=== PATIENT | female | born 1955 | race Caucasian/White ===

== ENCOUNTER 2020-04-09 16:41 | Inpatient (IN) ==
[2020-04-09] MEDS ORDERED: Aspirin 81 MG TAB.CHEW PO ONE (18:15)
[2020-04-09 18:35] LABS: Basophils # 0.1 K/mcL (0.0-0.2); Basophils % 0.6 %; Eosinophils # 0.3 K/mcL (0.0-0.6); Eosinophils % 4.1 %; Hematocrit 44.9 % (35.3-44.9); Immature Granulocytes % 0.2 % (0-4); Lymphocytes % 23.8 %; Mean Corpuscular HGB Conc 31.2 g/dL (31.6-35.5); Mean Corpuscular Hemoglobin 29.2 pg (28.0-33.3); Mean Corpuscular Volume 93.7 fL (83.0-100.0); Mean Platelet Volume 9.4 fL (9.4-12.4); Monocytes # 0.6 K/mcL (0.0-1.3); Monocytes % 7.4 %; Neutrophils # 5.3 K/mcL (1.6-8.9); Platelet Count 310 K/mcL (140-400); Red Blood Count 4.79 M/mcL (3.82-4.97); Segmented Neutrophils % 63.9 %; White Blood Count 8.3 K/mcL (4.3-11.1)
[2020-04-09 18:46] LABS: INR 1.1; Prothrombin Time 12.3 Seconds (9.4-12.1)
[2020-04-09 18:48] LABS: Activated Partial Thrombo Time 27.2 Seconds (26.0-36.0)
[2020-04-09 18:56] LABS: Alanine Aminotransferase 10 Units/L (7-52); Albumin 4.3 g/dL (3.5-5.7); Albumin/Globulin Ratio 1.5 (1.1-2.2); Alkaline Phosphatase 127 Units/L (34-104); Aspartate Amino Transferase 14 Units/L (13-39); BUN/Creatinine Ratio 25 (6-26); Bilirubin,Direct 0.1 mg/dL (0.0-0.2); Bilirubin,Indirect 0.3 mg/dL (0.0-1.0); Bilirubin,Total 0.4 mg/dL (0.3-1.0); Blood Urea Nitrogen 26 mg/dL (8-23); Calcium 9.8 mg/dL (8.6-10.3); Carbon Dioxide 30 mEq/L (23-29); Chloride 102 mEq/L (98-107); Globulin 2.8 g/dL (2.4-3.5); Glucose 126 mg/dL (70-105); Lipase 50 Units/L (11-82); Osmolality,Calculated 294 (280-300); Potassium 3.6 mEq/L (3.5-5.1); Sodium 139 mEq/L (136-145); Total Protein 7.1 g/dL (6.4-8.9); Troponin I 0.03 ng/mL (< 0.04); eGFR For African Americans > 60 (> 60); eGFR For Non-African Americans 54 (> 60)
[2020-04-09] MEDS ORDERED: predniSONE 20 MG TABLET PO ONE (19:58)
[2020-04-09] MEDS ORDERED: Naloxone 0.4 MG/ML INJ IVP PRN (21:37)
[2020-04-09] MEDS ORDERED: Ondansetron ODT 4 MG TAB.RAPDIS SL PRN (21:37)
[2020-04-09] MEDS ORDERED: Acetaminophen 325 MG TABLET PO PRN (21:37)
[2020-04-09] MEDS ORDERED: Perflutren Lipid Microsphere 1.3 ML in 0.9 % Sodium Chloride 8.7 ML IVP PRN (21:39)
[2020-04-10 00:52] LABS: Hematocrit 41.2 % (35.3-44.9); Hemoglobin 12.8 g/dL (11.5-15.4); Mean Corpuscular HGB Conc 31.1 g/dL (31.6-35.5); Mean Corpuscular Hemoglobin 29.5 pg (28.0-33.3); Mean Corpuscular Volume 94.9 fL (83.0-100.0); Mean Platelet Volume 9.5 fL (9.4-12.4); Platelet Count 240 K/mcL (140-400); Red Blood Count 4.34 M/mcL (3.82-4.97); Red Cell Distribution Width 14.7 % (11.5-14.5); White Blood Count 8.6 K/mcL (4.3-11.1)
[2020-04-10 00:56] LABS: Prothrombin Time 11.6 Seconds (9.4-12.1)
[2020-04-10 01:12] LABS: BUN/Creatinine Ratio 30 (6-26); Blood Urea Nitrogen 26 mg/dL (8-23); Calcium 9.4 mg/dL (8.6-10.3); Carbon Dioxide 23 mEq/L (23-29); Chloride 105 mEq/L (98-107); Chol/HDL Ratio 6.8 (0-4.9); Cholesterol 217 mg/dL (< 200); Glucose 133 mg/dL (70-105); HDL Cholesterol 32 mg/dL (40-59); LDL Cholesterol,Calculated 146 mg/dL (< 100); Magnesium 2.1 mg/dL (1.6-2.6); Osmolality,Calculated 293 (280-300); Phosphorous 3.5 mg/dL (2.7-4.5); Sodium 138 mEq/L (136-145); Triglycerides 197 mg/dL (< 150); eGFR For African Americans > 60 (> 60); eGFR For Non-African Americans > 60 (> 60)
[2020-04-10 01:25] LABS: Thyroid Stimulating Hormone 1.012 mcIU/mL (0.340-5.600)
[2020-04-10] MEDS ORDERED: Regadenoson 0.4 MG/5 ML SYRINGE IVP ONE (06:22)
[2020-04-10] MEDS ORDERED: Metoprolol XL (24 HR) Succ 25 MG TAB.ER.24H PO SCH (09:00)
[2020-04-10] MEDS ORDERED: Dextrose Gel 15 GM/37.5 ML TUBE PO PRN ×2 (09:12)
[2020-04-10] MEDS ORDERED: *HR* Dextrose 50 % in Water (Vial) 50 ML VIAL IVP PRN (09:12)
[2020-04-10] MEDS ORDERED: D5% in Water 1,000 ML IVC PRN (09:12)
[2020-04-10] MEDS: hydrALAZINE 25 MG TABLET PO SCH ×2 (09:32→20:05)
[2020-04-10] MEDS: Furosemide 20 MG TABLET PO SCH (09:32)
[2020-04-10] MEDS: Anastrozole 1 MG TABLET PO SCH (09:32)
[2020-04-10] MEDS: Gabapentin 100 MG CAPSULE PO SCH ×3 (09:32→20:06)
[2020-04-10] MEDS: Aspirin 325 MG TABLET PO SCH (09:40)
[2020-04-10] MEDS: Insulin LISPRO 300 UNITS/3 ML VIAL SQ SCH ×3 (09:56→17:28)
[2020-04-10] MEDS: predniSONE 20 MG TABLET PO SCH (14:06)
[2020-04-10] MEDS ORDERED: Nitroglycerin 1,000 MCG/10 ML VIAL IV ONE (14:16)
[2020-04-10] MEDS ORDERED: Heparin 1,000 UNITS/500 mL 500 ML ONE (14:16)
[2020-04-10] MEDS ORDERED: *HR* Heparin 10,000 UNIT/10 ML VIAL ONE (14:16)
[2020-04-10] MEDS ORDERED: ISOVUE-370 200 ML INFUS..BTL ONE ×2 (14:16→15:43)
[2020-04-10] MEDS ORDERED: 0.9 % Sodium Chloride 2,000 ML ONE (14:16)
[2020-04-10] MEDS ORDERED: *HR* Midazolam HCl 2 MG/2 ML VIAL ONE (15:06)
[2020-04-10] MEDS ORDERED: *HR* FentaNYL (PF) 100 MCG/2 ML VIAL ONE (15:06)
[2020-04-10] MEDS: *HR* Heparin 5,000 UNIT/ML VIAL SQ SCH (17:05)
[2020-04-11] MEDS: Insulin LISPRO 300 UNITS/3 ML VIAL SQ SCH ×6 (00:32→20:37)
[2020-04-11] MEDS: *HR* Heparin 5,000 UNIT/ML VIAL SQ SCH ×2 (05:32→17:02)
[2020-04-11] MEDS: Aspirin 325 MG TABLET PO SCH (07:40)
[2020-04-11] MEDS: predniSONE 20 MG TABLET PO SCH (08:32)
[2020-04-11] MEDS: Metoprolol XL (24 HR) Succ 50 MG TAB.ER.24H PO SCH (08:32)
[2020-04-11] MEDS: Gabapentin 100 MG CAPSULE PO SCH ×3 (08:32→20:37)
[2020-04-11] MEDS: Anastrozole 1 MG TABLET PO SCH (08:32)
[2020-04-11] MEDS: hydrALAZINE 25 MG TABLET PO SCH (08:33)
[2020-04-11] MEDS: Furosemide 20 MG TABLET PO SCH (08:33)
[2020-04-11 10:27] LABS: BUN/Creatinine Ratio 26 (6-26); Blood Urea Nitrogen 28 mg/dL (8-23); Calcium 9.4 mg/dL (8.6-10.3); Carbon Dioxide 24 mEq/L (23-29); Chloride 103 mEq/L (98-107); Glucose 159 mg/dL (70-105); Osmolality,Calculated 291 (280-300); Potassium 3.7 mEq/L (3.5-5.1); Sodium 136 mEq/L (136-145); eGFR For African Americans > 60 (> 60); eGFR For Non-African Americans 51 (> 60)
[2020-04-11 15:18] LABS: Bilirubin,Urine Negative (Negative); Blood,Urine Negative (Negative); Clarity,Urine Clear (Clear); Color,Urine Light-Yellow (Yellow); Glucose,Urine (UA) Normal (Normal); Ketones,Urine Negative (Negative); Leukocyte Esterase,Urine Negative (Negative); Nitrite,Urine Negative (Negative); PH,Urine 6.5 pH Units (5.0-8.0); Protein,Urine Negative (Neg-Trace); Specific Gravity,Urine 1.011 (1.010-1.025); Urobilinogen,Urine Normal (Normal)
[2020-04-12] MEDS: hydrALAZINE 25 MG TABLET PO SCH ×3 (00:58→21:22)
[2020-04-12 02:59] LABS: BUN/Creatinine Ratio 32 (6-26); Blood Urea Nitrogen 32 mg/dL (8-23); Calcium 9.5 mg/dL (8.6-10.3); Carbon Dioxide 26 mEq/L (23-29); Chloride 104 mEq/L (98-107); Glucose 111 mg/dL (70-105); Magnesium 2.3 mg/dL (1.6-2.6); Osmolality,Calculated 294 (280-300); Phosphorous 2.8 mg/dL (2.7-4.5); Sodium 138 mEq/L (136-145); eGFR For African Americans > 60 (> 60); eGFR For Non-African Americans 56 (> 60)
[2020-04-12] MEDS: *HR* Heparin 5,000 UNIT/ML VIAL SQ SCH ×2 (05:30→17:28)
[2020-04-12] MEDS: Insulin LISPRO 300 UNITS/3 ML VIAL SQ SCH ×4 (09:03→22:08)
[2020-04-12] MEDS: Aspirin 325 MG TABLET PO SCH (09:05)
[2020-04-12] MEDS: predniSONE 20 MG TABLET PO SCH (09:05)
[2020-04-12] MEDS: Anastrozole 1 MG TABLET PO SCH (09:06)
[2020-04-12] MEDS: Gabapentin 100 MG CAPSULE PO SCH ×3 (09:06→21:22)
[2020-04-12] MEDS: Metoprolol XL (24 HR) Succ 50 MG TAB.ER.24H PO SCH (09:06)
[2020-04-12] MEDS: Furosemide 20 MG TABLET PO SCH (09:06)
[2020-04-12] MEDS ORDERED: 0.9 % Sodium Chloride 1,000 ML ONE ×2 (11:41→11:42)
[2020-04-12] MEDS ORDERED: Nitroglycerin 1,000 MCG/10 ML VIAL IV ONE (11:42)
[2020-04-12] MEDS ORDERED: *HR* Heparin 10,000 UNIT/10 ML VIAL ONE (11:42)
[2020-04-12] MEDS ORDERED: Heparin 1,000 UNITS/500 mL 500 ML ONE (11:42)
[2020-04-12] MEDS ORDERED: ISOVUE-370 200 ML INFUS..BTL ONE ×2 (11:42→14:55)
[2020-04-12] MEDS ORDERED: *HR* FentaNYL (PF) 100 MCG/2 ML VIAL ONE (13:34)
[2020-04-12] MEDS ORDERED: *HR* Midazolam HCl 2 MG/2 ML VIAL ONE (13:34)
[2020-04-12] MEDS ORDERED: *HR* Ticagrelor 90 MG TABLET ONE (13:38)
[2020-04-12] MEDS ORDERED: *HR* Atropine Sulfate 1 MG/10 ML SYRINGE ONE (14:21)
[2020-04-12] MEDS: 0.9 % Sodium Chloride 1,000 ML IVC SCH (16:45)
[2020-04-13] MEDS: *HR* Heparin 5,000 UNIT/ML VIAL SQ SCH (06:34)
[2020-04-13 07:05] VITALS: BP 158/79
[2020-04-13] MEDS: Insulin LISPRO 300 UNITS/3 ML VIAL SQ SCH ×2 (07:23→12:51)
[2020-04-13] MEDS: predniSONE 20 MG TABLET PO SCH (09:04)
[2020-04-13] MEDS: Aspirin 325 MG TABLET PO SCH (09:04)
[2020-04-13] MEDS: Gabapentin 100 MG CAPSULE PO SCH (09:04)
[2020-04-13] MEDS: Furosemide 20 MG TABLET PO SCH (09:05)
[2020-04-13] MEDS: Anastrozole 1 MG TABLET PO SCH (09:05)
[2020-04-13] MEDS: hydrALAZINE 25 MG TABLET PO SCH (09:05)
[2020-04-13] MEDS: Metoprolol XL (24 HR) Succ 50 MG TAB.ER.24H PO SCH (09:05)
[2020-04-13 09:13] LABS: Hemoglobin 12.5 g/dL (11.5-15.4)
[2020-04-13 09:33] LABS: BUN/Creatinine Ratio 26 (6-26); Blood Urea Nitrogen 25 mg/dL (8-23); eGFR For African Americans > 60 (> 60); eGFR For Non-African Americans 59 (> 60)
[2020-04-13] MEDS: 0.9 % Sodium Chloride 1,000 ML IVC SCH (12:52)
== END 2020-04-13 13:14 | disposition home or self-care (01) | DRG 247 ==
LOC: 3BNU 16:41 → EMEROOARM 16:41 → SUATTDRO 21:33 → 3BNU 22:06 → SUATTDRO 04-11 10:00
PROVIDERS: ADMIT Internal Medicine; ATTEND Internal Medicine